=== PATIENT | female | born 1975 | race Caucasian/White ===

== ENCOUNTER 2016-08-17 17:19 | Emergency (ER) | payer OTHER, MEDICAID ==
[~2016-08-17] VITALS: Ht 162.6 cm; Wt 97.0 kg
[~2016-08-17 17:19] MED LIST: ALPR0.25 PO; CITA40TA4 PO; CLON0.5T PO; CLOR7.5T3 PO; HYDR-3516 PO; LEVO75TA3 PO; LORA10TA PO; MULT400T PO; PANT20TA2 PO; SIMV20TA PO
[2016-08-17 17:29] VITALS: BP 130/76; PULSE 97; RESP 18; TEMP 98.8; O2SAT 100
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
[2016-08-17] MEDS ORDERED: ACETAMINOPHEN/HYDROcodone 325 MG/5 MG TAB PO ONE (19:15)
[2016-08-17] MEDS ORDERED: KETOROLAC TROMETHAMINE 60 MG/2 ML (IM) VIAL IM ONE (19:15)
[2016-08-17] MEDS ORDERED: IBUP800T23 PO (20:12)
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
--- NOTE | 2016-08-18 18:05 | EKG ---
Date Performed: 08/17/2016 Time Performed: 20:04:38 PTAGE: 40 years EKG: Sinus rhythm NONSPECIFIC T-WAVE ABNORMALITY BORDERLINE ECG PREVIOUS TRACING 10/02/2015 @03.05.56 DOCTOR: Italia Shaw Interpretating Date/Time 08/18/2016 18:05:15
== END 2016-08-17 20:28 | disposition home or self-care (01) ==
LOC: NEPE 17:19
DX: S20.212A Contusion of left front wall of thorax, initial encounter (principal); G44.319 Acute post-traumatic headache, not intractable; I10 Essential (primary) hypertension; Z79.82 Long term (current) use of aspirin; Z95.0 Presence of cardiac pacemaker; E78.00 Pure hypercholesterolemia, unspecified; Y92.410 Unspecified street and highway as the place of occurrence of the external cause; V43.52XA Car driver injured in collision with other type car in traffic accident, initial encounter; Y93.9 Activity, unspecified; Y99.9 Unspecified external cause status
CPT/HCPCS: 71010; 93005; 96372; 99284; J1885

== ENCOUNTER 2017-01-20 23:47 | Emergency (ER) | payer MEDICAID ==
[~2017-01-20] VITALS: Ht 170.2 cm; Wt 98.0 kg
[~2017-01-20 23:47] MED LIST changes: +IBUP1TAB7 PO
[2017-01-20 23:49] VITALS: BP 113/66; PULSE 77; RESP 18; O2SAT 99
[2017-01-21 00:03] VITALS: RESP 17; O2SAT 99
[2017-01-21] MEDS ORDERED: ONDANSETRON HCL 4 MG/2 ML VIAL IV PUSH ONE (00:15)
[2017-01-21] MEDS ORDERED: PANTOPRAZOLE SODIUM 40 MG VIAL IV PUSH ONE (00:15)
[2017-01-21 00:16] LABS: AUTOMATED NEUTROPHIL # 2.4 TH/MM3 (1.8-7.7); BASOPHIL % 0.7 % (0.0-2.0); EOSINOPHIL # 0.2 TH/MM3 (0-0.4); EOSINOPHIL % 3.8 % (0.0-4.0); HEMATOCRIT 35.3 % (35.0-46.0); HEMO FLAGS DIFF FINAL; LYMPH % 45.7 % (9.0-44.0); LYMPHOCYTE # 2.7 TH/MM3 (1.0-4.8); MEAN CELL VOLUME 88.3 FL (80.0-100.0); MEAN CORPUSCULAR HEMOGLOBIN 30.7 PG (27.0-34.0); MEAN CORPUSCULAR HGB CONC 34.8 % (32.0-36.0); MONO % 8.4 % (0.0-8.0); NEUT % 41.4 % (16.0-70.0); PLATELET COUNT 295 TH/MM3 (150-450); RED CELL DISTRIBUTION WIDTH 12.9 % (11.6-17.2); WHITE BLOOD COUNT 5.8 TH/MM3 (4.0-11.0)
--- NOTE | 2017-01-21 00:20 | RADRPT ---
EXAM DATE/TIME: 01/21/2017 00:11 [facility] COMPARISON: CHEST SINGLE AP, August 17, 2016, 19:25. INDICATIONS : Chest pain. MEDICAL HISTORY : Hypertension. Hypercholesterolemia SURGICAL HISTORY : Pacemaker. Cardiac Cath. ENCOUNTER: Initial ACUITY: 1 day PAIN SCORE: 6/10 LOCATION: Bilateral chest FINDINGS: Cardiomegaly. Dual-lead pacer from a left subclavian transvenous approach again noted. The lungs are clear. Osseous structures are intact. CONCLUSION: No acute disease. Rashard Shaver MD on January 21, 2017 at 0:19 Board Certified Radiologist. This report was verified electronically.
[2017-01-21 00:37] LABS: ANION GAP 7 MEQ/L (5-15); BICARBONATE 24.3 MEQ/L (21.0-32.0); BLOOD UREA NITROGEN 8 MG/DL (7-18); CHLORIDE 108 MEQ/L (98-107); GLOMERULAR FILTRATION RATE 69 ML/MIN (>89); POTASSIUM 3.3 MEQ/L (3.5-5.1); SODIUM (NA) 139 MEQ/L (136-145)
[2017-01-21 00:50] LABS: ALT (GPT) 19 U/L (10-53); AST (GOT) 12 U/L (15-37)
[2017-01-21 00:52] LABS: ALKALINE PHOSPHATASE 89 U/L (45-117); TOTAL BILIRUBIN ADULT 0.1 MG/DL (0.2-1.0)
[2017-01-21 01:06] LABS: CREATINE KINASE 61 U/L (26-192)
[2017-01-21 03:00] VITALS: BP 107/69; PULSE 80; RESP 18; O2SAT 100
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
[2017-01-21 04:00] VITALS: BP 108/69; PULSE 80; RESP 20; O2SAT 100
[2017-01-21] MEDS ORDERED: KETOROLAC TROMETHAMINE 30 MG/ML (IVP) VIAL IV PUSH ONE (04:00)
[2017-01-21] MEDS ORDERED: oxyCODONE/ACETAMINOPHEN 5 MG/325 MG TAB PO ONE (04:00)
[2017-01-21] MEDS ORDERED: ACETAMIN 325 MG/BUTALBITAL 50 MG/CAFFEINE 40 MG TAB PO ONE (04:00)
[2017-01-21 05:00] VITALS: BP 113/74; PULSE 84; RESP 18; O2SAT 100
[2017-01-21 06:55] VITALS: BP 114/64; PULSE 68; RESP 18; O2SAT 100
[2017-01-21] MEDS ORDERED: FIOR30CA12 PO (07:05)
--- NOTE | 2017-01-21 12:42 | EKG ---
Date Performed: 01/20/2017 Time Performed: 23:51:30 PTAGE: 41 years EKG: Sinus rhythm NONSPECIFIC T-WAVE ABNORMALITY BORDERLINE ECG Since PREVIOUS TRACING , no significant change noted PREVIOUS TRACIN08/17/2016 20.04 DOCTOR: Wilfrido Garcia Interpretating Date/Time 01/21/2017 12:40:18
== END 2017-01-21 07:27 | disposition home or self-care (01) ==
LOC: NEPE 23:47
DX: K21.9 Gastro-esophageal reflux disease without esophagitis (principal); R51 Headache; R07.9 Chest pain, unspecified; K31.84 Gastroparesis; I10 Essential (primary) hypertension; E07.9 Disorder of thyroid, unspecified; I48.91 Unspecified atrial fibrillation; R94.31 Abnormal electrocardiogram [ECG] [EKG]
CPT/HCPCS: 71010; 80048; 80076; 82550; 84484; 85025; 93005; 96374; 96375; 99285; C9113; J1885; J2405

== ENCOUNTER 2017-06-17 12:51 | Emergency (ER) | payer MEDICAID ==
[~2017-06-17] VITALS: Ht 162.6 cm; Wt 96.0 kg
[~2017-06-17 12:51] MED LIST changes: +FIOR30CA12 PO
[2017-06-17 12:59] VITALS: BP 117/79; PULSE 87; RESP 16; TEMP 98.4; O2SAT 98
--- NOTE | 2017-06-17 13:12 | PD ---
HPI Chief Complaint: Facial Pain or Swelling Time Seen by Provider: 13:07 Travel History International Travel<30 days: No Contact w/Intl Traveler<30days: No Traveled to known affect area: No History of Present Illness HPI 41-year-old female patient with history of previous problems with allergic reaction to latex and other substances, hypertension, presents to the ER today because she states that 2 days ago she had in a wrap at [employer] and had an allergic reaction, has been taking Benadryl, but this morning woke up with her face swollen. She denies any trouble breathing, difficulty swallowing, or other symptoms. She has not yet taken her medications this morning. Modifying Factors: None Associated Signs & Symptoms: Facial swelling, allergic reaction Risk Factors: None PFSH Past Medical History Hx Anticoagulant Therapy: Yes (ASA) Heart Rhythm Problems: Yes Cancer: No Cardiac Catheterization: Yes Cardiovascular Problems: Yes (Pacemaker, A. Fib) High Cholesterol: Yes Chest Pain: No Congestive Heart Failure: No Diabetes: No Diminished Hearing: No Gastrointestinal Disorders: Yes (GASTROPARESIS, GERD) GERD: Yes Hepatitis: No Hiatal Hernia: No Heparin Induced Thrombocytopen: No Hypertension: Yes Integumentary: No Thyroid Disease: Yes Triglycerides - High: Yes Past Surgical History Abdominal Surgery: Yes (bladder tac) Cholecystectomy: Yes Coronary Artery Bypass Graft: No Hysterectomy: Yes (2003) Pacemaker: Yes (BITRONIC/DEMAND PACER) Other Surgery: Yes (PM, HYSTERECTOMY) Social History Alcohol Use: No Tobacco Use: No Substance Use: No Allergies-Medications (Allergen,Severity, Reaction): Coded Allergies: penicillin G (Unverified Allergy, Severe, Anaphylaxis, 09/27/16) latex (Verified Allergy, Unknown, 06/17/17) Reported Meds & Prescriptions Reported Meds & Active Scripts Active Fiorinal-Codeine #3 (Sjjpvtgopg-Ycmxbvp-Cjmdmstr-Codeine) 79-097-22-30 Mg Cap 1- 2 Cap PO Q4H PRN Do not exceed 6 capsules/day. Ibuprofen 800 Mg Tab 800 Mg PO Q8H PRN Simvastatin 20 Mg Tab 20 Mg PO DAILY Pantoprazole (Pantoprazole Sodium) 20 Mg Tab 40 Mg PO DAILY Citalopram (Citalopram Hydrobromide) 40 Mg Tab 40 Mg PO DAILY Levothyroxine (Levothyroxine Sodium) 75 Mcg Tab 75 Mcg PO DAILY Reported Clorazepate (Clorazepate Dipotassium) 7.5 Mg Tab 7.5 Mg PO HS PRN Hydrocodone-Acetaminophen 5-325 mg Tab 1 Tab PO Q6H PRN Alprazolam 0.25 Mg Tab 0.25 Mg PO Q8H PRN Loratadine 10 Mg Tab 10 Mg PO DAILY Clonazepam 0.5 Mg Tab 0.5 Mg PO BID Multaq (Dronedarone) 400 Mg Tab 400 Mg PO BID Simvastatin 20 Mg Tab 1 Tab PO HS Review of Systems Except as stated in HPI: all other systems reviewed are Neg Physical Exam Narrative GENERAL: Well-developed middle-age female patient currently in mild distress. Awake and oriented 3. SKIN: Focused skin assessment warm/dry. There is notable erythema and desquamation as well as mild edema of the face. HEAD: Atraumatic. Normocephalic. EYES: Pupils equal and round. No scleral icterus. No injection or drainage. ENT: Mucosa pink and moist. No erythema or exudates. No uvular edema. No uvular , palatal, or tonsillar deviation. Airway patent. No significant angioedema. NECK: Trachea midline. No JVD. CARDIOVASCULAR: Regular rate and rhythm. No murmur appreciated. RESPIRATORY: No accessory muscle use. Clear to auscultation. Breath sounds equal bilaterally. GASTROINTESTINAL: Abdomen soft, non-tender, nondistended. Hepatic and splenic margins not palpable. MUSCULOSKELETAL: No obvious deformities. No clubbing. No cyanosis. No edema. NEUROLOGICAL: Awake and alert. No obvious cranial nerve deficits. Motor grossly within normal limits. Normal speech. PSYCHIATRIC: Appropriate mood and affect; insight and judgment normal. Data Data Last Documented VS Vital Signs Date Time Temp Pulse Resp B/P (MAP) Pulse Ox O2 Delivery O2 Flow Rate FiO2 06/17/17 14:19 17 99 Room Air 06/17/17 14:17 72 06/17/17 12:59 98.4 Orders Orders Ecg Monitoring (06/17/17 13:07) Iv Access Insert/Monitor (06/17/17 13:07) Oximetry (06/17/17 13:07) Diphenhydramine Inj (Benadryl Inj) (06/17/17 13:15) Methylprednisolone So Succ Inj (Solumedr (06/17/17 13:15) Sodium Chloride 0.9% Flush (Ns Flush) (06/17/17 13:15) [facility] [place] Medical Decision Making Medical Screen Exam Complete: Yes Emergency Medical Condition: Yes Medical Record Reviewed: Yes Differential Diagnosis Allergic reaction Narrative Course Patient was given Solu-Medrol and Benadryl in the ER without further progression on symptoms after 2 hours of observation. At this point, my plan would be to release her with further steroid treatment and Benadryl. Follow-up with primary care doctor. Return for worsening in symptoms as needed. The plan has been discussed with her and she states understanding. Diagnosis Primary Impression: Allergic reaction Med/Other Pt SpecificInfo: Prescription(s) given Scripts Epinephrine Inj (Epinephrine Inj) 0.3 Mg/0.3 Ml Pfpen 0.3 MG IM ONCE Y for ALLERGIC REACTION, #1 PEN 0 Refills Prov: Kerrie Lema MD 06/17/17 Prednisone (Prednisone) 50 Mg Tab 50 MG PO DAILY for 5 Days, #5 TAB 0 Refills Prov: Kerrie Lema MD 06/17/17 Diphenhydramine (Diphenhydramine) 25 Mg Cap 25 MG PO Q6H Y for ALLERGIES, #20 CAP 0 Refills Prov: Kerrie Lema MD 06/17/17 Disposition: 01 DISCHARGE HOME Condition: Stable Kerrie Lema MD June 17, 2017 13:12
[2017-06-17] MEDS ORDERED: SODIUM CHLORIDE 0.9% FLUSH 10 ML FLUSH IV FLUSH PRN (13:15)
[2017-06-17] MEDS ORDERED: methylPREDNISolone SOD SUCC 125 MG/2 ML VIAL IV PUSH ONE (13:15)
[2017-06-17] MEDS ORDERED: diphenhydrAMINE HCL 50 MG/ML VIAL IVP ONE (13:15)
[2017-06-17 14:17] VITALS: BP 119/71; PULSE 72; RESP 17; O2SAT 99
[2017-06-17 14:19] VITALS: RESP 17; O2SAT 99
[2017-06-17] MEDS ORDERED: EPIN1INJ17 IM (14:56)
[2017-06-17] MEDS ORDERED: DIPH25CA PO (14:56)
[2017-06-17] MEDS ORDERED: PRED50 PO (14:56)
== END 2017-06-17 15:53 | disposition home or self-care (01) ==
LOC: NEPC 12:51
DX: T78.40XA Allergy, unspecified, initial encounter (principal); I10 Essential (primary) hypertension; I48.91 Unspecified atrial fibrillation; E78.2 Mixed hyperlipidemia; Z95.0 Presence of cardiac pacemaker; Z88.0 Allergy status to penicillin; Z79.899 Other long term (current) drug therapy
CPT/HCPCS: 96374; 96375; 99284; J1200; J2930

== ENCOUNTER 2017-08-05 17:53 | Emergency (ER) | payer MEDICAID ==
[~2017-08-05] VITALS: Ht 162.6 cm; Wt 96.5 kg
[~2017-08-05 17:53] MED LIST changes: +DIPH25CA PO; +EPIN1INJ17 IM; +PRED50 PO
[2017-08-05 18:02] VITALS: BP 129/76; PULSE 111; RESP 16; TEMP 98.8; O2SAT 100
[2017-08-05] MEDS ORDERED: ZANT150T2 PO (19:26)
[2017-08-05] MEDS ORDERED: ASPI-516 CHEW (19:26)
[2017-08-05] MEDS ORDERED: SODIUM CHLOR 0.9% 1000 ML INJ 1,000 ML IV ONE (20:08)
[2017-08-05] MEDS ORDERED: SODIUM CHLORIDE 0.9% FLUSH 10 ML FLUSH IVF PRN (20:15)
--- NOTE | 2017-08-05 20:28 | PD ---
HPI Chief Complaint: Syncope/Near-Syncope Time Seen by Provider: 19:32 Travel History International Travel<30 days: No Contact w/Intl Traveler<30days: No Traveled to known affect area: No History of Present Illness HPI Is a 41-year-old woman presents to the emergency department complaining of a syncopal episode. She is a history of a syncopal episode back in 2013. Evaluation from that with him the fine with sounds like pauses while she was sleeping overnight, apparently unrelated to her syncopal episode, but for which they and put in a pacemaker. She reports that they attributed to her syncopal episode she is exhaustion/overexertion. She has done well since then but has limited her exertion. Today she was outside pulling weeds, about 45 minutes or so in the he, and then was leaning over repairing a sprinkler when she began to feel lightheaded dizzy and presyncopal. She walked into the house and then woke up on the floor. She has some headache, as well as some low back pain. She otherwise had been feeling generally well and healthy. Review of systems positive for blood pressure on the left side of her chest. No other complaints. No recent illness or injury. History Past Medical History Narrative Medical Syncope, pacemaker placement Hypothyroidism Tetanus Vaccination: < 5 Years Influenza Vaccination: No Social History Alcohol Use: Yes (occ) Tobacco Use: No Allergies-Medications (Allergen,Severity, Reaction): Coded Allergies: penicillin G (Unverified Allergy, Severe, Anaphylaxis, 09/27/16) latex (Verified Allergy, Unknown, 06/17/17) Reported Meds & Prescriptions Reported Meds & Active Scripts Active Reported Aspirin 81 Mg Chew 81 Mg CHEW BID Zantac (Ranitidine HCl) 150 Mg Tab 150 Mg PO BID Review of Systems Except as stated in HPI: all other systems reviewed are Neg Physical Exam Narrative GENERAL: Well-appearing 41-year-old woman, no acute distress. SKIN: Focused skin assessment warm/dry. HEAD: Atraumatic. Normocephalic. Do not see any bruising or evidence of injury. EYES: Pupils equal and round. No scleral icterus. No injection or drainage. ENT: No nasal bleeding or discharge. Mucous membranes pink and moist. NECK: Trachea midline. No JVD. Moves neck freely. CARDIOVASCULAR: Regular rate and rhythm. No murmur appreciated. RESPIRATORY: No accessory muscle use. Clear to auscultation. Breath sounds equal bilaterally. GASTROINTESTINAL: Abdomen soft, non-tender, nondistended. Hepatic and splenic margins not palpable. MUSCULOSKELETAL: No obvious deformities. No clubbing. No cyanosis. No edema. NEUROLOGICAL: Awake and alert. No obvious cranial nerve deficits. Motor grossly within normal limits. Normal speech. PSYCHIATRIC: Appropriate mood and affect; insight and judgment normal. Data Data Last Documented VS Vital Signs Date Time Temp Pulse Resp B/P (MAP) Pulse Ox O2 Delivery O2 Flow Rate FiO2 08/05/17 20:11 Room Air 08/05/17 18:02 98.8 111 16 129/76 (93) 100 Orders Orders Electrocardiogram (08/05/17 ) Electrocardiogram (08/05/17 20:08) Complete Blood Count With Diff (08/05/17 20:08) Comprehensive Metabolic Panel (08/05/17 20:08) Magnesium (Mg) (08/05/17 20:08) Troponin I (08/05/17 20:08) Chest, Pa & Lat (08/05/17 20:08) Ct Brain W/O Iv Contrast(Rout) (08/05/17 20:08) Ecg Monitoring (08/05/17 20:08) Iv Access Insert/Monitor (08/05/17 20:08) Oximetry (08/05/17 20:08) Sodium Chloride 0.9% Flush (Ns Flush) (08/05/17 20:15) Sodium Chlor 0.9% 1000 Ml Inj (Ns 1000 M (08/05/17 20:08) Beta Hcg (Quant/Titer) (08/05/17 20:08) Acetaminophen (Tylenol) (08/06/17 00:00) Labs Laboratory Tests Test 08/05/17 21:04 White Blood Count 11.7 TH/MM3 Red Blood Count 4.47 MIL/MM3 Hemoglobin 13.5 GM/DL Hematocrit 39.4 % Mean Corpuscular Volume 88.3 FL Mean Corpuscular Hemoglobin 30.2 PG Mean Corpuscular Hemoglobin Concent 34.2 % Red Cell Distribution Width 13.0 % Platelet Count 321 TH/MM3 Mean Platelet Volume 6.2 FL Neutrophils (%) (Auto) 73.4 % Lymphocytes (%) (Auto) 20.7 % Monocytes (%) (Auto) 4.2 % Eosinophils (%) (Auto) 0.4 % Basophils (%) (Auto) 1.3 % Neutrophils # (Auto) 8.6 TH/MM3 Lymphocytes # (Auto) 2.4 TH/MM3 Monocytes # (Auto) 0.5 TH/MM3 Eosinophils # (Auto) 0.0 TH/MM3 Basophils # (Auto) 0.2 TH/MM3 CBC Comment DIFF FINAL Differential Comment Blood Urea Nitrogen 7 MG/DL Creatinine 0.95 MG/DL Random Glucose 81 MG/DL Total Protein 8.1 GM/DL Albumin 4.3 GM/DL Calcium Level 9.8 MG/DL Magnesium Level 2.0 MG/DL Alkaline Phosphatase 82 U/L Aspartate Amino Transf (AST/SGOT) 18 U/L Alanine Aminotransferase (ALT/SGPT) 22 U/L Total Bilirubin 0.5 MG/DL Sodium Level 137 MEQ/L Potassium Level 4.1 MEQ/L Chloride Level 105 MEQ/L Carbon Dioxide Level 21.3 MEQ/L Anion Gap 11 MEQ/L Estimat Glomerular Filtration Rate 64 ML/MIN Troponin I LESS THAN 0.02 NG/ML Human Chorionic Gonadotropin, Quant LESS THAN 1 MIU/ML MDM Medical Decision Making Medical Screen Exam Complete: Yes Emergency Medical Condition: Yes Interpretation(s) My review of EKG: Normal sinus rhythm at a rate of 90 inferior T waves a little bit flat. No definite evidence of acute ischemia. LABS: CBC is unremarkable. CMP is unremarkable. Troponin negative. HCG negative. Chest x-ray. Head CT negative. Differential Diagnosis Syncope, dehydration, arrhythmia, head injury from fall, other Narrative Course Medical decision making Is a 41-year-old woman presents to the emergency department complaining of a syncopal episode. She had a syncopal episode before. Similar was associated with exertion in the heat. She looks well. She does have a pacemaker placed. We will interrogate the pacemaker entered and there were no events. Longer she looks okay, will check labs. She does complain of severe headache and may have hit her head. Will check CT head, expect this will be negative. Otherwise recommend outpatient follow-up. FINAL: Reviewed report from [place]. Runs of SVT correspond with the time of symptoms. She looks well now. She is a bit headache. Eagerly. She will follow-up with Dr. Ureña regarding the SVT. Diagnosis Primary Impression: SVT (supraventricular tachycardia) Additional Impression: Syncope Additional Instructions: Follow-up with Dr. Ureña on Monday. Return to the emergency department for any new or worsening symptoms. Disposition: 01 DISCHARGE HOME Condition: Stable Tree Rendon MD Aug 05, 2017 20:28
[2017-08-05 21:15] LABS: AUTOMATED NEUTROPHIL # 8.6 TH/MM3 (1.8-7.7); BASOPHIL # 0.2 TH/MM3 (0-0.2); BASOPHIL % 1.3 % (0.0-2.0); EOSINOPHIL % 0.4 % (0.0-4.0); HEMATOCRIT 39.4 % (35.0-46.0); HEMOGLOBIN 13.5 GM/DL (11.6-15.3); LYMPH % 20.7 % (9.0-44.0); LYMPHOCYTE # 2.4 TH/MM3 (1.0-4.8); MEAN CELL VOLUME 88.3 FL (80.0-100.0); MEAN CORPUSCULAR HEMOGLOBIN 30.2 PG (27.0-34.0); MEAN CORPUSCULAR HGB CONC 34.2 % (32.0-36.0); MEAN PLATELET VOLUME 6.2 FL (7.0-11.0); MONO % 4.2 % (0.0-8.0); MONOCYTE # 0.5 TH/MM3 (0-0.9); NEUT % 73.4 % (16.0-70.0); PLATELET COUNT 321 TH/MM3 (150-450); RED BLOOD COUNT 4.47 MIL/MM3 (4.00-5.30); WHITE BLOOD COUNT 11.7 TH/MM3 (4.0-11.0)
--- NOTE | 2017-08-05 21:25 | RADRPT ---
EXAM DATE: 08/05/2017 8:55 PM EDT AGE/SEX: 41 years / Female INDICATIONS: Heart palpitations. CLINICAL DATA: This is the patient's initial encounter. Patient reports that signs and symptoms have been present for 1 day and indicates a pain score of 0/10. MEDICAL/SURGICAL HISTORY: . Hypertension. Hypercholesterolemia . A-fib. Appendectomy. Pacemake r. Cardiac Cath. COMPARISON: No prior exams available for comparison. FINDINGS: PA and lateral views of the chest demonstrate the lungs to be symmetrically aerated without evidence of mass, infiltrate or effusion. The cardiomediastinal contours are unremarkable. Osseous structures are intact. CONCLUSION: No active disease. Pacer leads overlie right atrium and right ventricle. Electronically signed by: Fawad Del Rio MD 08/05/2017 9:24 PM EDT
--- NOTE | 2017-08-05 21:37 | RADRPT ---
EXAM DATE: 08/05/2017 9:16 PM EDT AGE/SEX: 41 years / Female INDICATIONS: Syncopal episode. CLINICAL DATA: This is the patient's initial encounter. Patient reports that signs and symptoms have been present for 1 day and indicates a pain score of 0/10. MEDICAL/SURGICAL HISTORY: Cardiovascular disease. Gastroesophageal reflux disease. Pacemaker. Hys terectomy. Cholecystectomy. RADIATION DOSE: 39.23 CTDI (mGy) COMPARISON: [facility] [place] [facility] [place]/O [place], 03/08/2015. . TECHNIQUE: CT of the head without contrast. Using automated exposure control and adjustment of the mA and/or kV according to patient size, radiation dose was kept as low as reasonably achievable to ob tain optimal diagnostic quality images. DICOM format image data is available electronically for revi ew and comparison. FINDINGS: Cerebrum: The ventricles are normal for age. No evidence of midline shift, mass lesion, hemorrhage or acute infarction. No extraaxial fluid collections are seen. Posterior Fossa: The cerebellum and brainstem are intact. The 4th ventricle is midline. The cerebe llopontine angle is unremarkable. Extracranial: The visualized portion of the orbits is intact. Skull: The calvaria is intact. No evidence of skull fracture. CONCLUSION: 1. No acute intracranial abnormalities are Electronically signed by: Fawad Del Rio MD 08/05/2017 9:35 PM EDT
[2017-08-05 21:49] LABS: ALBUMIN 4.3 GM/DL (3.4-5.0); AST (GOT) 18 U/L (15-37); BICARBONATE 21.3 MEQ/L (21.0-32.0); BLOOD UREA NITROGEN 7 MG/DL (7-18); CALCIUM 9.8 MG/DL (8.5-10.1); CHLORIDE 105 MEQ/L (98-107); CREATININE 0.95 MG/DL (0.50-1.00); GLOMERULAR FILTRATION RATE 64 ML/MIN (>89); GLUCOSE,RANDOM 81 MG/DL (74-106); SODIUM (NA) 137 MEQ/L (136-145)
[2017-08-05 21:50] LABS: ALT (GPT) 22 U/L (10-53)
[2017-08-05 21:54] LABS: ALKALINE PHOSPHATASE 82 U/L (45-117); TOTAL BILIRUBIN ADULT 0.5 MG/DL (0.2-1.0); TOTAL PROTEIN 8.1 GM/DL (6.4-8.2); TROPONIN I LESS THAN 0.02 NG/ML (0.02-0.05)
[2017-08-06] MEDS ORDERED: ACETAMINOPHEN 500 MG CPLT PO ONE
--- NOTE | 2017-08-06 13:38 | EKG ---
Date Performed: 08/05/2017 Time Performed: 18:17:30 PTAGE: 41 years EKG: Sinus rhythm NONSPECIFIC T-WAVE ABNORMALITY BORDERLINE ECG Since PREVIOUS TRACING , no significant change noted PREVIOUS TRACIN01/20/2017 23.51 DOCTOR: Kenn Longoria Interpretating Date/Time 08/06/2017 13:37:33
== END 2017-08-05 23:57 | disposition home or self-care (01) ==
LOC: NEPC 17:53
DX: I47.1 Supraventricular tachycardia (principal); R55 Syncope and collapse; R51 Headache
CPT/HCPCS: 70450; 71046; 80053; 83735; 84484; 84702; 85025; 93005; 96360; 99285; J7030